=== PATIENT | female | born 1960 | race Caucasian/White ===

== ENCOUNTER → 2017-02-10 | Outpatient (CLI) | payer BC ==
[~2017-02-10] MED LIST: BPR75T PO; HYDR118S PO; IBP800T PO
--- NOTE | 2017-02-13 14:16 | Diagnostic Imaging Report ---
EXAMINATION: Bilateral screening mammogram 2D views with tomosynthesis. The current study was also evaluated with a Computer Aided Detection (CAD) system. INDICATION: Screening. PERSONAL HISTORY: No current complaints stated on the questionnaire. COMPARISON: 01/01/2016. FINDINGS: The breasts are composed of scattered fibroglandular densities. Occasional punctate calcifications are seen. Allowing for technique and positional differences, no suspicious change is seen. IMPRESSION: No significant change. ACR BI-RADS Category 2: Benign findings. Result letter will be mailed to the patient. Note: At least 10% of breast cancer is not imaged by mammography. Dictated by: Dictated on workstation # [id number]
== END ==
LOC: RAD 12:59
PROVIDERS: ATTEND Nurse Practitioner
DX: Z12.31 Encounter for screening mammogram for malignant neoplasm of breast (principal)
CPT/HCPCS: 77067

== ENCOUNTER → 2018-02-12 | Outpatient (CLI) | payer BC ==
--- NOTE | 2018-02-12 13:09 | Diagnostic Imaging Report ---
INDICATION: Routine screening. COMPARISON: 02/10/2017 and 01/01/2016. TECHNIQUE: 2D and 3D bilateral screening mammography was performed with CAD. FINDINGS: Scattered fibroglandular densities are identified bilaterally. No mass or malignant-appearing microcalcifications are seen. The axillae are unremarkable. IMPRESSION: No mammographic features suspicious for malignancy are identified. ACR BI-RADS Category 1: Negative. Result letter will be mailed to the patient. Note: At least 10% of breast cancer is not imaged by mammography. Dictated by: Dictated on workstation # [id number]
== END ==
LOC: RAD 07:44
PROVIDERS: ATTEND Nurse Practitioner
DX: Z12.31 Encounter for screening mammogram for malignant neoplasm of breast (principal)
CPT/HCPCS: 77067

== ENCOUNTER → 2019-02-15 | Outpatient (CLI) | payer BC ==
--- NOTE | 2019-02-15 09:48 | Diagnostic Imaging Report ---
Indication: Routine screening. Comparison is made with prior mammogram 02/12/2018 and 02/10/2017. 2-D and 3-D bilateral screening mammography was performed with CAD. Scattered fibroglandular densities are identified bilaterally. The parenchymal pattern is stable. No mass or malignant appearing microcalcifications are seen. Axillae are unremarkable. IMPRESSION: BI-RADS Category 1 No mammographic features suspicious for malignancy are identified. ACR BI-RADS Category 1: Negative. Result letter will be mailed to the patient. Note: At least 10% of breast cancer is not imaged by mammography. Dictated by: Dictated on workstation # [id number]
== END ==
LOC: RAD 07:22
PROVIDERS: ATTEND Nurse Practitioner
DX: Z12.31 Encounter for screening mammogram for malignant neoplasm of breast (principal); Z01.419 Encounter for gynecological examination (general) (routine) without abnormal findings
CPT/HCPCS: 77067

== ENCOUNTER → 2020-02-18 | Outpatient (CLI) | payer BC ==
--- NOTE | 2020-02-18 10:28 | Diagnostic Imaging Report ---
INDICATION: Routine screening. COMPARISON: 02/15/2019 and 02/12/2018. TECHNIQUE: 2D and 3D bilateral screening mammography was performed with CAD. FINDINGS: Scattered fibroglandular densities are identified bilaterally. The parenchymal pattern is stable. No mass or malignant appearing microcalcifications are seen. The axillae are unremarkable. IMPRESSION: No mammographic features suspicious for malignancy are identified. ACR BI-RADS Category 1: Negative. Result letter will be mailed to the patient. Note: At least 10% of breast cancer is not imaged by mammography. Dictated by: Dictated on workstation # [id number]
== END ==
LOC: RAD 07:30
PROVIDERS: ATTEND Nurse Practitioner
DX: Z12.31 Encounter for screening mammogram for malignant neoplasm of breast (principal)
CPT/HCPCS: 77063; 77067

== ENCOUNTER → 2021-02-25 | Outpatient (CLI) | payer BC ==
--- NOTE | 2021-02-25 08:53 | Diagnostic Imaging Report ---
Indication: Routine screening. Comparison is made with prior mammogram from 02/18/2020 and 02/15/2019. 2-D and 3-D bilateral screening mammography was performed with CAD. Scattered fibroglandular densities are identified bilaterally. No mass or malignant-appearing microcalcifications are seen. Axillae are unremarkable. IMPRESSION: BI-RADS Category 1 No mammographic features suspicious for malignancy are identified. ACR BI-RADS Category 1: Negative. Result letter will be mailed to the patient. Note: At least 10% of breast cancer is not imaged by mammography. Dictated by: Dictated on workstation # [id number]
== END ==
LOC: RAD 07:38
PROVIDERS: ATTEND Nurse Practitioner
DX: Z12.31 Encounter for screening mammogram for malignant neoplasm of breast (principal)
CPT/HCPCS: 77063; 77067

== ENCOUNTER 2021-12-31 20:37 | Emergency (ER) | payer BC ==
[~2021-12-31] VITALS: Ht 170 cm; Wt 91.0 kg
--- NOTE | 2021-12-31 21:08 | ED General ---
General Chief Complaint: Psych/Social Disorder Stated Complaint: CP,HTN History of Present Illness Date Seen by Provider: Dec 31, 2021 Time Seen by Provider: 21:03 Initial Comments 61-year-old non-smoking female with no significant PMH is here with complaints of sternal chest pain which is nonradiating, and began today afternoon. 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 Today she went home early from work because of the pain and then came to the ER since it was not getting better. Patient took her blood pressure at home and noticed that it was very high. Patient states that she has been having high stress and gets anxious and nervous very easily. Denies SOB, palpitations, abdominal pain, nausea and vomiting, fever. Patient states she cannot swallow pills. Allergies and Home Medications Allergies Coded Allergies: No Known Drug Allergies (Unverified , 08/25/11) Patient Home Medication List Home Medication List Reviewed: Yes Discontinued Medications Bupropion Hcl (Wellbutrin) 75 Mg Tablet, 1 TAB PO BID, (Reported) Discontinued Reason: No Longer Taking Entered as Reported by: CRISTIAN BOUDREAUX on 08/25/11 1043 Last Action: Discontinued Hydrocodone Bit/Acetaminophen (Hydrocodone-Apap 7.5-500 Mg/15) 120 Ml Solution, 15 ML PO q4-6hrs prn, (Reported) Discontinued Reason: No Longer Taking Entered as Reported by: JUANY SINGH on 08/31/11 1457 Last Action: Discontinued Ibuprofen (Motrin) 800 Mg Tablet, 1 TAB PO Q8HRS PRN, (Reported) Discontinued Reason: No Longer Taking Entered as Reported by: JUANY SINGH on 08/31/11 1489 Last Action: Discontinued Review of Systems Review of Systems Constitutional: no symptoms reported EENTM: no symptoms reported Respiratory: no symptoms reported Cardiovascular: chest pain Gastrointestinal: no symptoms reported Genitourinary: no symptoms reported Musculoskeletal: no symptoms reported Skin: no symptoms reported Psychiatric/Neurological: Anxiety Hematologic/Lymphatic: No Symptoms Reported Immunological/Allergic: no symptoms reported Past Hwlfnwv-Kylyjs-Qigvfl Hx Past Medical History Reproductive Disorders: No Physical Exam Vital Signs Vital Signs - First Documented 12/31/21 21:01 Temp 37.0 Pulse 93 Resp 20 B/P (MAP) 168/97 (120) Pulse Ox 95 O2 Delivery Room Air Capillary Refill : Height, Weight, BMI Height: '" Weight: lbs. oz. kg; BMI Method: General Appearance: No Apparent Distress, WD/WN, Anxious HEENT: PERRL/EOMI Neck: Full Range of Motion Respiratory: Lungs Clear, Normal Breath Sounds, No Accessory Muscle Use Cardiovascular: Regular Rate, Rhythm, No Murmur, Other (Point tenderness over the costochondral junctions along the third fourth fifth ribs) Gastrointestinal: Normal Bowel Sounds, Non Tender, Soft Back: No CVA Tenderness, No Vertebral Tenderness Extremity: Normal Range of Motion Neurologic/Psychiatric: Alert, Oriented x3, No Motor/Sensory Deficits, Normal Mood/Affect Skin: Normal Color Progress/Results/Core Measures Suspected Sepsis SIRS Temperature: Pulse: Respiratory Rate: Laboratory Tests 12/31/21 21:24: White Blood Count 10.0 Blood Pressure / Mean: Laboratory Tests 12/31/21 21:24: Creatinine 0.87, INR Comment 0.9, Platelet Count 228, Total Bilirubin 0.3 Results/Orders Lab Results Laboratory Tests Test 12/31/21 21:21 12/31/21 21:24 12/31/21 21:31 Range/Units Urine Color YELLOW Urine Clarity CLEAR Urine pH 5.5 5-9 Urine Specific [place] 1.015 L 1.016-1.022 Urine Protein NEGATIVE NEGATIVE Urine Glucose (UA) NEGATIVE NEGATIVE Urine Ketones NEGATIVE NEGATIVE Urine Nitrite NEGATIVE NEGATIVE Urine Bilirubin NEGATIVE NEGATIVE Urine Urobilinogen 0.2 < = 1.0 MG/DL Urine Leukocyte Esterase TRACE H NEGATIVE Urine RBC (Auto) TRACE-I H NEGATIVE Urine RBC NONE /HPF Urine WBC NONE /HPF Urine Crystals NONE /LPF Urine Bacteria NEGATIVE /HPF Urine Casts NONE /LPF Urine Mucus NEGATIVE /LPF Urine Culture Indicated NO Urine Opiates Screen NEGATIVE NEGATIVE Urine Oxycodone Screen NEGATIVE NEGATIVE Urine Methadone Screen NEGATIVE NEGATIVE Urine Propoxyphene Screen NEGATIVE NEGATIVE Urine Barbiturates Screen NEGATIVE NEGATIVE Ur Tricyclic Antidepressants Screen NEGATIVE NEGATIVE Urine Phencyclidine Screen NEGATIVE NEGATIVE Urine Amphetamines Screen NEGATIVE NEGATIVE Urine Methamphetamines Screen NEGATIVE NEGATIVE Urine Benzodiazepines Screen NEGATIVE NEGATIVE Urine Cocaine Screen NEGATIVE NEGATIVE Urine Cannabinoids Screen NEGATIVE NEGATIVE White Blood Count 10.0 4.3-11.0 10^3/uL Red Blood Count 4.49 3.80-5.11 10^6/uL Hemoglobin 13.5 11.5-16.0 g/dL Hematocrit 40 35-52 % Mean Corpuscular Volume 89 80-99 fL Mean Corpuscular Hemoglobin 30 25-34 pg Mean Corpuscular Hemoglobin Concent 34 32-36 g/dL Red Cell Distribution Width 13.2 10.0-14.5 % Platelet Count 228 130-400 10^3/uL Mean Platelet Volume 9.5 9.0-12.2 fL Immature Granulocyte % (Auto) 0 % Neutrophils (%) (Auto) 78 H 42-75 % Lymphocytes (%) (Auto) 17 12-44 % Monocytes (%) (Auto) 5 0-12 % Eosinophils (%) (Auto) 1 0-10 % Basophils (%) (Auto) 0 0-10 % Neutrophils # (Auto) 7.7 1.8-7.8 10^3/uL Lymphocytes # (Auto) 1.6 1.0-4.0 10^3/uL Monocytes # (Auto) 0.5 0.0-1.0 10^3/uL Eosinophils # (Auto) 0.1 0.0-0.3 10^3/uL Basophils # (Auto) 0.0 0.0-0.1 10^3/uL Immature Granulocyte # (Auto) 0.0 0.0-0.1 10^3/uL Prothrombin Time 12.7 12.2-14.7 SEC INR Comment 0.9 0.8-1.4 Activated Partial Thromboplast Time 31 24-35 SEC D-Dimer 0.31 0.00-0.49 UG/ML Sodium Level 140 135-145 MMOL/L Potassium Level 4.4 3.6-5.0 MMOL/L Chloride Level 107 98-107 MMOL/L Carbon Dioxide Level 21 21-32 MMOL/L Anion Gap 12 5-14 MMOL/L Blood Urea Nitrogen 12 7-18 MG/DL Creatinine 0.87 0.60-1.30 MG/DL Estimat Glomerular Filtration Rate 75 BUN/Creatinine Ratio 14 Glucose Level 121 H 70-105 MG/DL Calcium Level 9.5 8.5-10.1 MG/DL Corrected Calcium 9.4 8.5-10.1 MG/DL Magnesium Level 2.0 1.6-2.4 MG/DL Total Bilirubin 0.3 0.1-1.0 MG/DL Aspartate Amino Transf (AST/SGOT) 24 5-34 U/L Alanine Aminotransferase (ALT/SGPT) 22 0-55 U/L Alkaline Phosphatase 109 40-136 U/L Troponin I < 0.028 <0.028 NG/ML B-Type Natriuretic Peptide 18.8 <100.0 PG/ML Total Protein 7.9 6.4-8.2 GM/DL Albumin 4.1 3.2-4.5 GM/DL Thyroid Stimulating Hormone (TSH) 2.51 0.35-4.94 UIU/ML Influenza Type A (RT-PCR) Not Detected Not Detecte Influenza Type B (RT-PCR) Not Detected Not Detecte SARS-CoV-2 RNA (RT-PCR) Not Detected Not Detecte My Orders Orders - POLI PETE MD Chest 1 View, Ap/Pa Only (12/31/21 21:15) Cbc With Automated Diff (12/31/21 21:16) Magnesium (12/31/21 21:16) Ekg Tracing (12/31/21 21:16) Comprehensive Metabolic Panel (12/31/21 21:16) Protime With Inr (12/31/21 21:16) Partial Thromboplastin Time (12/31/21 21:16) Monitor-Rhythm Ecg Trace Only (12/31/21 21:16) Ed Iv/Invasive Line Start (12/31/21 21:16) Bnp [place] (12/31/21 21:16) Fibrin Degradation Products (12/31/21 21:16) Troponin I Radha (12/31/21 21:16) Aspirin Chewable Tablet (Baby Aspirin Ch (12/31/21 21:30) Drug Screen Stat (Urine) (12/31/21 21:17) Ua Culture If Indicated (12/31/21 21:17) Thyroid Stimulating Hormone (12/31/21 21:17) Covid 19 Inhouse Test (12/31/21 21:17) Influenza A And B By Pcr (12/31/21 21:17) Medications Given in ED Current Medications Medications Dose Ordered Sig/Drew Route Start Time Stop Time Status Last Admin Dose Admin Aspirin 324 mg ONCE ONCE PO 12/31/21 21:30 12/31/21 21:31 DC 12/31/21 21:22 324 MG Vital Signs/I&O 12/31/21 21:01 Temp 37.0 Pulse 93 Resp 20 B/P (MAP) 168/97 (120) Pulse Ox 95 O2 Delivery Room Air Capillary Refill : Progress Note : Progress Note 1. ACUTE COSTOCHONDRITIS: also Anxiety induced elevated BP - CXR: unremarkable - Labs normal - Troponin/ EKG: non-ischemic - Advised Ibuprofen 400mg to 600mg Q6H for 7 days, take with food - Follow up with PCP in 3 to 7 days -The patient was seen in the ED, and treated appropriately to presentation at a specific point in time. Patient is informed that there is a possibility that disease and illness can evolve and change in acuity rapidly or slowly after patient is discharged from the ER. Precautionary advice given to the patient for immediate return to ER if symptoms worsen or do not resolve, and to seek emergency care sooner rather than later. Pt also advised on the importance of PCP follow up and compliance with management and follow up plan with PCP and/or specialist, as this is part of the management plan. Pt verbally expressed understanding. 2. ACUTE CYSTITIS: - UA is positive for LE with RBC - Pt states that she has mild dysuria - Keflex 500mg bid for 5 days Diagnostic Imaging Diagonstic Imaging: Xray Plain Films/CT/US/NM/MRI: chest Comments [facility]. [place], [place] NAME: RADHA BENOIT [facility] REC#: [id number] PT STATUS: REG ER : 1960 PHYSICIAN: POLI PETE MD ADMIT DATE: 12/31/21/ER Signed Date of Exam:12/31/21 CHEST 1 VIEW, AP/PA ONLY Indication: Chest pain Portable AP upright view of the chest is obtained COMPARISON: No previous study is available for comparison at this time. FINDINGS: Heart size and pulmonary vasculature are within normal limits, and the lungs are clear, bilaterally. IMPRESSION: Unremarkable chest. Dictated by: Dictated on workstation # [id number] Dict: 12/31/212135 Trans: 12/31/212136 [id number] Interpreted by: PORTILLO WHITE MD Electronically signed by: PORTILLO WHITE MD 12/31/212136 Departure Impression Primary Impression: Acute costochondritis Additional Impressions: Anxiety Ruled out for myocardial infarction Disposition: HOME, SELF-CARE Condition: Improved Departure-Patient Inst. Referrals: HARRIET OLIVIA DO (PCP) Primary Care Physician SAL OLIVIA, AJAY (Family) Primary Care Physician Patient Instructions: Costochondritis (DC), Anxiety, Adult (DC) Add. Discharge Instructions: - Advised Ibuprofen 400mg to 600mg Q6H for 7 days, take with food - Follow up with PCP in 3 to 7 days - Keflex 500mg bid for 5 days - Over the counter Lidoderm patches over chest - return to ER if symptoms worsen All discharge instructions reviewed with patient and/or family. Voiced understanding. Scripts Cephalexin (Cephalexin) 500 Mg Tablet 500 MG PO BID for 5 Days, #10 TAB Prov: POLI PETE MD 12/31/21 Work/School Note: Work Release Form Date Seen in the Emergency Department: Dec 31, 2021 Return to Work: Jan 03, 2022 Restrictions: No Restrictions POLI PETE MD Dec 31, 2021 21:08
[2021-12-31] MEDS ORDERED: ASPIRIN 81 MG CHEW (CHILDREN'S ASA) PO ONE (21:30)
[2021-12-31 21:36] LABS: BASOPHILS % (AUTO) 0 % (0-10); EOSINOPHILS # (AUTO) 0.1 10^3/uL (0.0-0.3); EOSINOPHILS % (AUTO) 1 % (0-10); HEMATOCRIT 40 % (35-52); HEMOGLOBIN 13.5 g/dL (11.5-16.0); LYMPHOCYTES # (AUTO) 1.6 10^3/uL (1.0-4.0); LYMPHOCYTES % (AUTO) 17 % (12-44); MEAN CORPUSCULAR HEMOGLOBIN 30 pg (25-34); MEAN CORPUSCULAR HGB CONC 34 g/dL (32-36); MEAN CORPUSCULAR VOLUME 89 fL (80-99); MEAN PLATELET VOLUME 9.5 fL (9.0-12.2); MONOCYTES # (AUTO) 0.5 10^3/uL (0.0-1.0); MONOCYTES % (AUTO) 5 % (0-12); NEUTROPHILS # (AUTO) 7.7 10^3/uL (1.8-7.8); NEUTROPHILS % (AUTO) 78 % (42-75); PLATELET COUNT 228 10^3/uL (130-400)
[2021-12-31 21:37] LABS: BILIRUBIN,URINE NEGATIVE (NEGATIVE); CLARITY,URINE CLEAR; COLOR,URINE YELLOW; GLUCOSE, URINE (UA) NEGATIVE (NEGATIVE); KETONES,URINE NEGATIVE (NEGATIVE); LEUKOCYTE ESTERASE ,URINE TRACE (NEGATIVE); NITRITE,URINE NEGATIVE (NEGATIVE); PH,URINE 5.5 (5-9); PROTEIN,URINE NEGATIVE (NEGATIVE)
--- NOTE | 2021-12-31 21:38 | Diagnostic Imaging Report ---
Indication: Chest pain Portable AP upright view of the chest is obtained COMPARISON: No previous study is available for comparison at this time. FINDINGS: Heart size and pulmonary vasculature are within normal limits, and the lungs are clear, bilaterally. IMPRESSION: Unremarkable chest. Dictated by: Dictated on workstation # [id number]
[2021-12-31 21:44] LABS: ALBUMIN 4.1 GM/DL (3.2-4.5); POTASSIUM 4.4 MMOL/L (3.6-5.0)
[2021-12-31 21:46] LABS: CALCIUM 9.5 MG/DL (8.5-10.1)
[2021-12-31 21:47] LABS: TOTAL PROTEIN 7.9 GM/DL (6.4-8.2)
[2021-12-31 21:49] LABS: BILIRUBIN,TOTAL 0.3 MG/DL (0.1-1.0)
[2021-12-31 21:50] LABS: CREATININE SERUM 0.87 MG/DL (0.60-1.30)
[2021-12-31 21:51] LABS: INR 0.9 (0.8-1.4); PROTHROMBIN TIME PATIENT 12.7 SEC (12.2-14.7)
[2021-12-31 21:53] LABS: AMPHETAMINE SCREEN, URINE NEGATIVE (NEGATIVE); BARBITURATE SCREEN URINE NEGATIVE (NEGATIVE); BENZODIAZEPINES SCREEN URINE NEGATIVE (NEGATIVE); CANNABINOID SCREEN, URINE NEGATIVE (NEGATIVE); COCAINE SCREEN URINE NEGATIVE (NEGATIVE); METHADONE STAT NEGATIVE (NEGATIVE); OPIATE SCREEN URINE NEGATIVE (NEGATIVE); OXYCODONE STAT NEGATIVE (NEGATIVE); PROPOXYPHENE STAT NEGATIVE (NEGATIVE); TRICYCLIC ANTIDEPRESSANTS SCRE NEGATIVE (NEGATIVE)
[2021-12-31 21:59] LABS: BACTERIA,URINE NEGATIVE /HPF
[2021-12-31] MEDS ORDERED: CEPH500T PO (22:30)
[2021-12-31 22:44] VITALS: BP 130/68
== END 2021-12-31 22:47 | disposition home or self-care (01) ==
LOC: EDUNIT# 20:37 → ER 20:55
DX: M94.0 Chondrocostal junction syndrome [Tietze] (principal); F41.9 Anxiety disorder, unspecified; N30.00 Acute cystitis without hematuria; Z28.310 Unvaccinated for COVID-19; Z20.822 Contact with and (suspected) exposure to COVID-19
CPT/HCPCS: 36415; 71045; 80053; 80306; 81000; 83735; 83880; 84443; 84484; 85025; 85379; 85610; 85730; 87636; 93005; 93041

== ENCOUNTER → 2022-03-31 | Outpatient (CLI) | payer BC ==
[~2022-03-31] MED LIST changes: +CEPH500T PO
--- NOTE | 2022-03-31 12:06 | Diagnostic Imaging Report ---
Indication: Routine screening. Comparison is made with prior mammogram from 02/25/2021 and 02/18/2020. 2-D and 3-D bilateral screening mammography was performed with CAD. CAD is utilized. The current study was also evaluated with a Computer Aided Detection (CAD) system. Scattered fibroglandular densities are identified bilaterally. There has been development of a small circumscribed nodule in the outer right breast approximately 5 cm from the nipple. This may represent a small cyst. The left breast is unremarkable. No malignant-appearing microcalcifications are seen. Axillae are unremarkable. IMPRESSION: BI-RADS 0 Development of a tiny circumscribed nodule in the outer right breast 5 cm from the nipple approximately 9:00 location. Further evaluation of this area with ultrasound is recommended. ACR BI-RADS Category 0: Incomplete. (Needs additional imaging evaluation). Result letter will be mailed to the patient. Note: At least 10% of breast cancer is not imaged by mammography. Dictated by: Dictated on workstation # [id number]
== END ==
LOC: RAD 07:29
PROVIDERS: ATTEND Surgery
DX: Z12.31 Encounter for screening mammogram for malignant neoplasm of breast (principal); N63.15 Unspecified lump in the right breast, overlapping quadrants
CPT/HCPCS: 77063; 77067

== ENCOUNTER → 2022-04-07 | Outpatient (CLI) | payer BC ==
--- NOTE | 2022-04-07 11:44 | Diagnostic Imaging Report ---
INDICATION: Right breast density. CORRELATION is made with screening mammogram from 03/31/2022. Sonographic interrogation of the outer right breast was performed. There is a small cyst at the 9:00 location, 4 cm from the nipple measuring 4 mm x 3 mm x 3 mm. This likely accounts for the mammographic density. No solid mass is detected. IMPRESSION: BI-RADS Category 2 Simple cyst at the 9:00 location in the right breast accounting for the mammographic density. The patient may return to routine annual screening mammography. ACR BI-RADS Category 2: Benign findings. Result letter will be mailed to the patient. Note: At least 10% of breast cancer is not imaged by mammography. Dictated by: Dictated on workstation # [id number]
== END ==
LOC: RAD 09:15
PROVIDERS: ATTEND Surgery
DX: N60.01 Solitary cyst of right breast (principal)